=== PATIENT | female | born 1980 | race Caucasian/White ===

== ENCOUNTER 2017-01-30 15:02 | Emergency (ER) | payer MEDICARE, MEDICAID ==
[~2017-01-30] VITALS: Ht 157.5 cm; Wt 99.3 kg
[~2017-01-30 15:02] MED LIST: ALBU17AE3; ALBU8.5H2 IH; AMOX-355 PO; AMT25T; BSP10T PR; BUSP30TA2 PO; BUTA-234 PO; CLON1TAB PO; DESL1TBM PO; DOCU100T7 PO; DULO30CA; EST.625T PO; FEXO180T PO; FLUT1DIS26 IH; GBPN300C PO; HYDR-229 PO; HYDR-3816 PO; HYDR50CA3 PO; INVEGA; LMT25T; MNTL10T PO; MULT-608 PO; NAPR-243 PO; OMEP20CA12 PO; OXCA600T3 PO; PARO-49 PO; POTA99TA7 PO; PRD20T PO; PREG50C PO; PREMARIN; QTP100T; QTP100T PO; RANI-515 PO; SERT50TA PO; SOMA; TOPI200T25 PO; TRAZ150T42 PO; TRAZ150T72 PO; ZIPR60CA2 PO; ZLP10T PO
--- NOTE | 2017-01-30 15:08 | ED General ---
General Stated Complaint: LOW BACK PAIN/FEVER Source of Information: Patient Exam Limitations: No Limitations History of Present Illness Time Seen by Provider: 16:20 Initial Comments The patient is a 36-year-old white female who reports that she has been having urinary symptoms for several weeks. [facility] and was found to have hematuria. Her labs screening was otherwise negative. She has complains of urinary retention burning and low back pain. She also believes she has had a fever but this is not substantiated. She has also previously been seen by Dr. Gonzales. She states that she was scheduled for a CT scan next week. There is a sense of frustration expressed TAC ITLY. Allergies and Home Medications Allergies Coded Allergies: escitalopram oxalate (Verified Allergy, Mild, 07/13/12) latex (Unverified Allergy, Unknown, ITCHING, 08/30/15) sumatriptan (Verified Allergy, Unknown, 03/12/06) Uncoded Allergies: SURGICAL GLUE (Allergy, Unknown, DOESN'T ADHERE, 08/30/15) Home Medications Albuterol 8.5 Gm Hfa.aer.ad, 2 PUFF IH Q4H PRN, (Reported) Buspirone HCl 30 Mg Tablet, 30 MG PO BID, (Reported) Butalb/Acetaminophen/Caffeine 1 Each Tablet, 1 EACH PO Q4HR PRN, (Reported) Clonazepam 1 Mg Tablet, 1 MG PO TID PRN for ANXIETY, (Reported) Hydrocodone/Acetaminophen 1 Each Tablet, 1-2 TAB PO Q6H, #40 Ref 0 MAY TAKE ONE TABLET BY MOUTH EVERY 6 HRS NEEDED FOR PAIN. LAST DOSE GIVEN AT 1:49 PM ON 08/30/15. DO NOT EXCEED 4000 MG TYLENOL(ACETAMINOPHEN)IN A 24 HR PERIOD. Prescribed by: MILVIA AMARO on 08/30/15 1404 Montelukast Sodium 10 Mg Tablet, 10 MG PO DAILY, (Reported) Omeprazole 20 Mg Capsule.dr, 20 MG PO HS, (Reported) Oxcarbazepine 600 Mg Tablet, 600 MG PO BID, (Reported) Paroxetine HCl 20 Mg Tablet, 20 MG PO HS, (Reported) Ranitidine HCl 150 Mg Tablet, 150 MG PO DAILY PRN for HEARTBURN, (Reported) Topiramate 200 Mg Tablet, 200 MG PO BID, (Reported) Trazodone HCl 150 Mg Tablet, 150 MG PO HS, (Reported) Ziprasidone HCl 60 Mg Capsule, 60 MG PO BID, (Reported) Constitutional: see HPI EENTM: no symptoms reported Respiratory: no symptoms reported Cardiovascular: no symptoms reported Gastrointestinal: no symptoms reported Genitourinary: see HPI Musculoskeletal: no symptoms reported Skin: no symptoms reported Psychiatric/Neurological: Other (previous treatment multiple meds) Hematologic/Lymphatic: No Symptoms Reported Immunological/Allergic: no symptoms reported Physical Exam Vital Signs Vital Sign - Last 12Hours 01/30/17 16:02 Temp 98.5 Pulse 85 Resp 16 B/P (MAP) 145/89 Pulse Ox 98 O2 Delivery Room Air Capillary Refill : General Appearance: No Apparent Distress, WD/WN Eyes: Bilateral Eye Normal Inspection HEENT: Normal ENT Inspection Neck: Full Range of Motion, Normal Inspection, Non Tender, Supple Respiratory: Chest Non Tender, Lungs Clear, Normal Breath Sounds, No Accessory Muscle Use, No Respiratory Distress Cardiovascular: Regular Rate, Rhythm, No Edema, No Gallop, No JVD, No Murmur, Normal Peripheral Pulses Back: No CVA Tenderness Extremity: Normal Capillary Refill, Normal Inspection, Normal Range of Motion, Non Tender, No Calf Tenderness, No Pedal Edema Neurologic/Psychiatric: Alert, Oriented x3, No Motor/Sensory Deficits, Normal Mood/Affect Skin: Normal Color, Warm/Dry Lymphatic: No Adenopathy Progress/Results/Core Measures Results/Orders Lab Results Laboratory Tests Test 01/30/17 16:05 Range/Units Urine Color YELLOW Urine Clarity CLEAR Urine pH 6.5 5-9 Urine Specific [place] 1.015 L 1.016-1.022 Urine Protein 1+ H NEGATIVE Urine Glucose (UA) NEGATIVE NEGATIVE Urine Ketones NEGATIVE NEGATIVE Urine Nitrite NEGATIVE NEGATIVE Urine Bilirubin NEGATIVE NEGATIVE Urine Urobilinogen NORMAL NORMAL MG/DL Urine Leukocyte Esterase 1+ H NEGATIVE Urine RBC (Auto) 2+ H NEGATIVE Urine RBC 5-10 H /HPF Urine WBC 2-5 /HPF Urine Squamous Epithelial Cells 2-5 /HPF Urine Crystals NONE /LPF Urine Bacteria NONE /HPF Urine Casts NONE /LPF Urine Mucus NEGATIVE /LPF Urine Culture Indicated NO My Orders Orders - DAYANA COLEMAN MD Ua Culture If Indicated (01/30/17 16:02) Ct Abd/Pelvis Wo(Kidney Stone) (01/30/17 16:48) Fentanyl Injection (Sublimaze Injection (01/30/17 17:00) Medications Given in ED Current Medications Medications Dose Ordered Sig/Annette Route Start Time Stop Time Status Last Admin Dose Admin Fentanyl Citrate 50 mcg ONCE ONCE IM 01/30/17 17:00 01/30/17 17:01 DC 01/30/17 17:10 50 MCG Vital Signs/I&O Vital Sign - Last 12Hours 01/30/17 16:02 Temp 98.5 Pulse 85 Resp 16 B/P (MAP) 145/89 Pulse Ox 98 O2 Delivery Room Air Departure Impression Impression: Primary Impression: microscopic hematuria Disposition: HOME, SELF-CARE Condition: Stable/Unchanged Departure-Patient Inst. Decision time for Depature: 18:11 Add. Discharge Instructions: Take plenty of liquids Avoid NSAIDs such as ibuprofen Take tramadol as needed for back pain It would be useful to have a repeat consult with Dr. Gonzales Scripts Tramadol HCl (Tramadol HCl) 50 Mg Tablet 50 MG PO 3 times a day Y for pain, #20 TAB Prov: DAYANA COLEMAN MD 01/30/17 DAYANA COLEMAN MD Jan 30, 2017 15:08
[2017-01-30 16:15] LABS: BILIRUBIN,URINE NEGATIVE (NEGATIVE); KETONES,URINE NEGATIVE (NEGATIVE); LEUKOCYTE ESTERASE ,URINE 1+ (NEGATIVE); NITRITE,URINE NEGATIVE (NEGATIVE); PH,URINE 6.5 (5-9); PROTEIN,URINE 1+ (NEGATIVE); UROBILINOGEN,URINE NORMAL (NORMAL)
[2017-01-30] MEDS ORDERED: fentaNYL INJECTION 100 MCG/2 ML AMP IM ONE (17:00)
--- NOTE | 2017-01-30 17:52 | Diagnostic Imaging Report ---
PROCEDURE: CT urinary tract, rule out kidney stone. TECHNIQUE: Multiple contiguous axial images were obtained through the abdomen and pelvis without the use of intravenous contrast. INDICATION: Bilateral flank pain for one week. FINDINGS: Unenhanced images of the liver and spleen reveal no focal abnormality. There is distention of the gallbladder without evidence of wall thickening or inflammation. No pancreatic or adrenal gland abnormality is identified. There is punctate calcification of approximately 0.2 cm diameter in the upper pole of the left kidney. No other renal abnormality is seen. There is no evidence of hydronephrosis or hydroureter. There is mild aortoiliac atherosclerotic calcification. There is no free fluid in the abdomen or pelvis. No localized inflammation is seen. There is no evidence of pathologic adenopathy. IMPRESSION: Punctate nonobstructing calculus in the upper pole of the left kidney. Otherwise, there is no acute abnormality seen in the abdomen or pelvis. Dictated by: Dictated on workstation # [id number]
[2017-01-30] MEDS ORDERED: TRAM50TA2 PO (18:13)
[2017-01-30 18:20] VITALS: BP 145/89
== END 2017-01-30 18:20 | disposition home or self-care (01) ==
LOC: EDUNIT# 15:02 → ER 15:07
DX: R31.21 Asymptomatic microscopic hematuria (principal)
CPT/HCPCS: 74176; 81000; 99282

== ENCOUNTER 2017-06-06 17:12 | Emergency (ER) | payer MEDICARE, MEDICAID ==
[~2017-06-06] VITALS: Ht 157.5 cm; Wt 90.7 kg
[~2017-06-06 17:12] MED LIST changes: +TRAM50TA2 PO
--- NOTE | 2017-06-06 17:54 | ED Headache ---
General Chief Complaint: Head/Cervical Problems Stated Complaint: MIGRAINE Nursing Triage Note: PT REPORTS MIGRAINE SINCE YESTERDAY. SHE REPORTS TAKING FUROCET AT 1430 WITH NO RELIEF. Nursing Sepsis Screen: No Definite Risk Source: patient Exam Limitations: no limitations History of Present Illness Time seen by provider: 17:54 Initial Comments 36-year-old female patient presents to the emergency department with complaints of a migraine beginning yesterday. Reports she taken to Fioricet yesterday and 2 today without relief. Patient did use an Excedrin migraine headache yesterday with mild improvement. Denies taking any ibuprofen or Aleve as this "normally doesn't do much." Patient does complain of photophobia, phonophobia, and nausea. Denies vomiting. Reports similar to usual headaches. Patient reports frequent tension and migraine headache. Timing/Duration: other (today onset) Allergies and Home Medications Allergies Coded Allergies: escitalopram oxalate (Verified Allergy, Mild, 07/13/12) latex (Unverified Allergy, Unknown, ITCHING, 08/30/15) sumatriptan (Verified Allergy, Unknown, 03/12/06) Uncoded Allergies: SURGICAL GLUE (Allergy, Unknown, DOESN'T ADHERE, 08/30/15) Home Medications Albuterol 8.5 Gm Hfa.aer.ad, 2 PUFF IH Q4H PRN, (Reported) Buspirone HCl 30 Mg Tablet, 30 MG PO BID, (Reported) Butalb/Acetaminophen/Caffeine 1 Each Tablet, 1 EACH PO Q4HR PRN, (Reported) Clonazepam 1 Mg Tablet, 1 MG PO TID PRN for ANXIETY, (Reported) Hydrocodone/Acetaminophen 1 Each Tablet, 1-2 TAB PO Q6H, #40 Ref 0 MAY TAKE ONE TABLET BY MOUTH EVERY 6 HRS NEEDED FOR PAIN. LAST DOSE GIVEN AT 1:49 PM ON 08/30/15. DO NOT EXCEED 4000 MG TYLENOL(ACETAMINOPHEN)IN A 24 HR PERIOD. Prescribed by: MILVIA AMARO on 08/30/15 1404 Montelukast Sodium 10 Mg Tablet, 10 MG PO DAILY, (Reported) Omeprazole 20 Mg Capsule.dr, 20 MG PO HS, (Reported) Oxcarbazepine 600 Mg Tablet, 600 MG PO BID, (Reported) Paroxetine HCl 20 Mg Tablet, 20 MG PO HS, (Reported) Ranitidine HCl 150 Mg Tablet, 150 MG PO DAILY PRN for HEARTBURN, (Reported) Topiramate 200 Mg Tablet, 200 MG PO BID, (Reported) Tramadol HCl 50 Mg Tablet, 50 MG PO 3 times a day PRN for pain, #20 Prescribed by: DAYANA COLEMAN on 01/30/171812 Trazodone HCl 150 Mg Tablet, 150 MG PO HS, (Reported) Ziprasidone HCl 60 Mg Capsule, 60 MG PO BID, (Reported) Past Kctaupu-Nwxbtd-Ubhjly Hx Patient Social History Alcohol Use: Denies Use Recreational Drug Use: No Smoking Status: Current Everyday Smoker Type Used: Cigarettes 2nd Hand Smoke Exposure: No Recent Foreign Travel: No Contact w/Someone Who Travel: No Recent Infectious Disease Expo: No Recent Hopitalizations: No Physical Abuse: No Sexual Abuse: No Seasonal Allergies Seasonal Allergies: Yes Surgeries History of Surgeries: Yes (ESS, SEVERAL BREAST BX, R SHOULDER X4, DXLS X3, BILAT CTR, BILAT KNEE) Surgeries: Abdominal, Adenoidectomy, Appendectomy, Breast, Section, Hysterectomy, Orthopedic, Tonsillectomy Respiratory History of Respiratory Disorde: Yes Respiratory Disorders: Asthma Cardiovascular History of Cardiac Disorders: No Neurological History of Neurological Disord: Yes Neurological Disorders: Headaches /Migraines Reproductive System Hx Reproductive Disorders: No Sexually Transmitted Disease: No Female Reproductive Disorders: Endometriosis Gastrointestinal History of Gastrointestinal Di: Yes Gastrointestinal Disorders: Gastroesophageal Reflux, Chronic Constipation Musculoskeletal History of Musculoskeletal Dis: Yes Musculoskeletal Disorders: Arthritis Endocrine History of Endocrine Disorders: No Cancer History of Cancer: No Psychosocial History of Psychiatric Problem: Yes Behavioral Health Disorders: Anxiety, Bipolar, Schizophrenia, Depression Suicide Risk Score: 0 Integumentary History of Skin or Integumenta: No Blood Transfusions History of Blood Disorders: No Family Medical History Significant Family History: No Pertinent Family Hx Physical Exam Vital Signs Vital Sign - Last 12Hours 06/06/17 17:35 Temp 97.1 Pulse 92 Resp 16 B/P (MAP) 145/95 Pulse Ox 97 O2 Delivery Room Air Capillary Refill : Less Than 3 Seconds Progress/Results/Core Measures Results/Orders My Orders Orders - KIM PATTON Ketorolac Injection (Toradol Injection) (06/06/17 18:47) Orphenadrine Injection (Norflex Injectio (06/06/17 18:47) Promethazine Injection (Phenergan Injec (06/06/17 18:47) Diphenhydramine Tablet (Benadryl Tablet) (06/06/17 19:00) Medications Given in ED Current Medications Medications Dose Ordered Sig/Annette Route Start Time Stop Time Status Last Admin Dose Admin Diphenhydramine HCl 25 mg ONCE ONCE PO 06/06/17 19:00 06/06/17 19:01 DC 06/06/17 19:00 25 MG Vital Signs/I&O Vital Sign - Last 12Hours 06/06/17 17:35 Temp 97.1 Pulse 92 Resp 16 B/P (MAP) 145/95 Pulse Ox 97 O2 Delivery Room Air Blood Pressure Mean: 112 Departure Impression Impression: Primary Impression: Migraine Disposition: HOME, SELF-CARE Condition: Improved Departure-Patient Inst. Decision time for Depature: 19:32 Referrals: [facility] (PCP/Family) Primary Care Physician Patient Instructions: Tension Headache (DC), Migraine Headache (DC) Add. Discharge Instructions: All discharge instructions reviewed with patient and/or family. Voiced understanding. Continue usual home medications. Tylenol [id number] as directed for pain or headache. (do not exceed more than 3000 mg of tylenol in 24 hours. fioricet has 300 mg of tylenol per capsule.) Ibuprofen 800 mg by mouth every 8 hours as needed for pain or headache. Avoid bright lights, loud noises, tablets, computers, televisions, and Smart phones. Drink plenty of fluids. Cold compresses or heating pad as needed. Follow-up with your family practitioner for recheck and outpatient if needed. Return to the emergency department for worsened symptoms, changes in behavior, slurred speech, numbness, weakness, seizure, shortness of air, chest pain, or any other concerns. Work/School Note: Work Release Form Date Seen in the Emergency Department: Jun 06, 2017 Return to Work: Jun 06, 2017 Restrictions: No Restrictions KIM PATTON Jun 06, 2017 17:54
[2017-06-06] MEDS ORDERED: PROMETHAZINE INJ 25 MG/ML (PHENERGAN) AMP IM STA (18:47)
[2017-06-06] MEDS ORDERED: ORPHENADRINE 60 MG/2 ML (NORFLEX) AMP IM STA (18:47)
[2017-06-06] MEDS ORDERED: KETOROLAC 60 MG/2 ML VIAL IM STA (18:47)
[2017-06-06] MEDS ORDERED: diphenhydrAMINE 25 MG TAB (BENADRYL) PO ONE (19:00)
[2017-06-06 19:39] VITALS: BP 145/95
== END 2017-06-06 19:39 | disposition home or self-care (01) ==
LOC: EDUNIT# 17:12 → ER 17:13
DX: G43.909 Migraine, unspecified, not intractable, without status migrainosus (principal); K21.9 Gastro-esophageal reflux disease without esophagitis; J45.909 Unspecified asthma, uncomplicated; F41.9 Anxiety disorder, unspecified; F31.9 Bipolar disorder, unspecified; F20.9 Schizophrenia, unspecified; F17.210 Nicotine dependence, cigarettes, uncomplicated; Z90.49 Acquired absence of other specified parts of digestive tract; Z87.59 Personal history of other complications of pregnancy, childbirth and the puerperium; Z90.710 Acquired absence of both cervix and uterus; Z87.19 Personal history of other diseases of the digestive system
CPT/HCPCS: 96372; 99284

== ENCOUNTER 2018-04-30 15:08 | Outpatient (RCR) | payer MEDICARE, MEDICAID ==
[~2018-04-30 15:08] MED LIST changes: +HYDR-34 PO; -HYDR-3816 PO
== END 2018-05-21 | disposition home or self-care (01) ==
PROVIDERS: ATTEND Orthopaedic Surgery
DX: Z47.1 Aftercare following joint replacement surgery (principal); Z96.611 Presence of right artificial shoulder joint

== ENCOUNTER 2018-09-25 17:13 | Emergency (ER) | payer MEDICARE, MEDICAID ==
--- NOTE | 2018-09-25 17:46 | NUR ---
Called pt to triage; pt not in waiting room.
--- NOTE | 2018-09-25 18:06 | NUR ---
Called pt to triage; pt not in waiting room.
== END 2018-09-25 18:06 | disposition left against medical advice (07) ==
LOC: EDUNIT# 17:13 → ER 17:15
DX: R07.81 Pleurodynia (principal); W19.XXXA Unspecified fall, initial encounter

== ENCOUNTER → 2019-07-22 | Outpatient (CLI) | payer MEDICARE, MEDICAID ==
[2019-07-22 10:02] LABS: BASOPHILS % (AUTO) 0 % (0-10); EOSINOPHILS # (AUTO) 0.1 10^3/uL (0.0-0.3); EOSINOPHILS % (AUTO) 2 % (0-10); HEMATOCRIT 38 % (35-52); HEMOGLOBIN 13.4 G/DL (11.5-16.0); LYMPHOCYTES # (AUTO) 2.2 X 10^3 (1.0-4.0); LYMPHOCYTES % (AUTO) 36 % (12-44); MEAN CORPUSCULAR HEMOGLOBIN 32 PG (25-34); MEAN CORPUSCULAR HGB CONC 35 G/DL (32-36); MEAN CORPUSCULAR VOLUME 89 FL (80-99); MEAN PLATELET VOLUME 8.7 FL (7.4-10.4); MONOCYTES # (AUTO) 0.6 X 10^3 (0.0-1.0); MONOCYTES % (AUTO) 9 % (0-12); NEUTROPHILS # (AUTO) 3.2 X 10^3 (1.8-7.8); NEUTROPHILS % (AUTO) 53 % (42-75); PLATELET COUNT 321 10^3/uL (130-400); WHITE BLOOD COUNT 6.2 10^3/uL (4.3-11.0)
[2019-07-22 10:27] LABS: ALANINE AMINOTRANSFERASE 14 U/L (0-55); ALBUMIN 4.2 GM/DL (3.2-4.5); ALKALINE PHOSPHATASE 105 U/L (40-136); BILIRUBIN,TOTAL 0.3 MG/DL (0.1-1.0); BUN/CREATININE RATIO 8; CARBON DIOXIDE 19 MMOL/L (21-32); CHLORIDE 107 MMOL/L (98-107); CREATININE SERUM 0.88 MG/DL (0.60-1.30); GFR ESTIMATED > 60; GLUCOSE 97 MG/DL (70-105); POTASSIUM 3.7 MMOL/L (3.6-5.0); SODIUM 135 MMOL/L (135-145); TOTAL PROTEIN 6.5 GM/DL (6.4-8.2)
[2019-07-22 10:34] LABS: ERYTHROCYTE SEDIMENTATION RATE 9 MM/HR (0-20)
== END ==
LOC: LAB 09:46
PROVIDERS: ATTEND Psychiatry & Neurology Neurology
DX: F41.9 Anxiety disorder, unspecified (principal); G43.909 Migraine, unspecified, not intractable, without status migrainosus
CPT/HCPCS: 36415; 80053; 85025; 85652

== ENCOUNTER 2020-02-02 00:23 | Emergency (ER) | payer MEDICARE, MEDICAID ==
[~2020-02-02 00:23] MED LIST changes: -RANI-515 PO; +RANI-609 PO; -TRAM50TA2 PO; +TRM50T PO
[2020-02-02] MEDS ORDERED: LACTATED RINGERS 1,000 ML IV ONE (01:03)
[2020-02-02] MEDS ORDERED: GBPN600T (01:04)
[2020-02-02] MEDS ORDERED: TOPI200C6 (01:04)
[2020-02-02] MEDS ORDERED: PANT40TA3 (01:04)
[2020-02-02] MEDS ORDERED: MIRA50TA (01:04)
[2020-02-02] MEDS ORDERED: ZONI100C29 (01:04)
[2020-02-02] MEDS ORDERED: OXCA600T10 (01:04)
[2020-02-02] MEDS ORDERED: FAMO20TA5 (01:04)
[2020-02-02] MEDS ORDERED: ZOLM5SPR5 (01:04)
[2020-02-02] MEDS ORDERED: FLUT1DIS26 (01:04)
--- NOTE | 2020-02-02 01:12 | ED Abdominal Pain ---
General Chief Complaint: Abdominal/GI Problems Stated Complaint: CONSTIPATED,SEVERE ABD PAIN Source of Information: Patient Exam Limitations: No Limitations History of Present Illness Date Seen by Provider: Feb 02, 2020 Time Seen by Provider: 00:59 Initial Comments Here with report of severe abdominal pain and having problems with constipation. Apparently she's had difficulty with bowel movements over the last month. She is on stool softeners 3 times a day. That wasn't working so she was instructed by her doctor to drink a bottle of mag citrate. That did not produce significant results today and she called back and was instructed to drink another bottle of mag citrate. She did have one small bowel movement after the first bottle but had 11 after the second. She started having significant pain that causes her to double over, although is improved now. She was told that if she had pain that made her double over that she should seek further evaluation at the emergency department. Also complains of left-sided pain and is worried about obstruction or rupture. Denies blood in her stool. States that she has to push to go. Has long-standing constipation problems. Timing/Duration: Changing Over Time, Getting Worse, Other Severity/Quality: Moderate, Severe, Aching, Cramping Location: Generalized Abdomen Radiation: No Radiation Activities at Onset: Other (laxatives) Modifying Factors: Improves With Defecating Associated Symptoms: No Back Pain, No Chest Pain, No Fever/Chills, No Nausea/Vomiting, No Shortness of Air, No Swelling/Mass in Abdomen, No Weakness Allergies and Home Medications Allergies Coded Allergies: escitalopram oxalate (Verified Allergy, Mild, 07/13/12) latex (Unverified Allergy, Unknown, ITCHING, 08/30/15) sumatriptan (Verified Allergy, Unknown, 03/12/06) Uncoded Allergies: SURGICAL GLUE (Allergy, Unknown, DOESN'T ADHERE, 08/30/15) Home Medications Albuterol 8.5 Gm Hfa.aer.ad, 2 PUFF IH Q4H PRN, (Reported) Buspirone HCl 30 Mg Tablet, 30 MG PO BID, (Reported) Butalb/Acetaminophen/Caffeine 1 Each Tablet, 1 EACH PO Q4HR PRN, (Reported) Clonazepam 1 Mg Tablet, 1 MG PO TID PRN for ANXIETY, (Reported) Montelukast Sodium 10 Mg Tablet, 10 MG PO DAILY, (Reported) Oxcarbazepine 600 Mg Tablet, 600 MG PO BID, (Reported) Paroxetine HCl 20 Mg Tablet, 20 MG PO HS, (Reported) Ranitidine HCl 150 Mg Tablet, 150 MG PO DAILY PRN for HEARTBURN, (Reported) Trazodone HCl 150 Mg Tablet, 150 MG PO HS, (Reported) Ziprasidone HCl 60 Mg Capsule, 60 MG PO BID, (Reported) Patient Home Medication List Home Medication List Reviewed: Yes Review of Systems Review of Systems Constitutional: see HPI; No chills, No fever EENTM: No Nose Congestion Respiratory: Denies Cough, Denies Shortness of Air Cardiovascular: No Symptoms Reported Gastrointestinal: Abdominal Pain, Constipated; Denies Nausea, Denies Vomiting Genitourinary: No Symptoms Reported Musculoskeletal: no symptoms reported Skin: no symptoms reported Psychiatric/Neurological: No Symptoms Reported All Other Systems Reviewed Negative Unless Noted: Yes Past Xacmyvy-Ixhaqk-Ztalkq Hx Past Med/Social Hx: Reviewed Nursing Past Med/Soc Hx Patient Social History Alcohol Use: Denies Use Smoking Status: Current Everyday Smoker Type Used: Cigarettes 2nd Hand Smoke Exposure: No Recent Foreign Travel: No Contact w/Someone Who Travel: No Recent Hopitalizations: No Seasonal Allergies Seasonal Allergies: Yes Past Medical History Surgeries: Yes (ESS, SEVERAL BREAST BX, R SHOULDER X4, DXLS X3, BILAT CTR, BILAT KNEE) Abdominal, Adenoidectomy, Appendectomy, Breast, Section, Hysterectomy, Orthopedic, Tonsillectomy Respiratory: Yes Asthma Cardiac: No Neurological: Yes Headaches /Migraines Reproductive Disorders: No Female Reproductive Disorders: Endometriosis Sexually Transmitted Disease: No Gastrointestinal: Yes Gastroesophageal Reflux, Chronic Constipation Musculoskeletal: Yes Arthritis Endocrine: No Cancer: No Psychosocial: Yes Anxiety, Bipolar, Schizophrenia, Depression Integumentary: No Blood Disorders: No Family Medical History Reviewed Nursing Family Hx No Pertinent Family Hx Physical Exam Vital Signs Vital Signs - First Documented 02/02/20 00:45 Temp 36.6 Pulse 94 Resp 16 B/P (MAP) 126/83 (97) O2 Delivery Room Air Capillary Refill : Height/Weight/BMI Height: 5'2.00" Weight: 200lbs. 0oz. 90.112298kd; 0.00 BMI Method:Stated General Appearance: WD/WN, no apparent distress HEENT: PERRL/EOMI, pharynx normal Neck: full range of motion, supple Respiratory: lungs clear, normal breath sounds Cardiovascular: regular rate, rhythm, no murmur Gastrointestinal: normal bowel sounds, soft; No guarding, No rebound; tenderness (diffuse) Extremities: non-tender, normal inspection Back: normal inspection, no CVA tenderness, no vertebral tenderness Neurologic/Psychiatric: alert, oriented x 3 Skin: normal color, warm/dry Progress/Results/Core Measures Results/Orders Lab Results Laboratory Tests Test 02/02/20 00:48 02/02/20 01:10 Range/Units Urine Color YELLOW Urine Clarity CLEAR Urine pH 8.0 5-9 Urine Specific [place] 1.010 L 1.016-1.022 Urine Protein NEGATIVE NEGATIVE Urine Glucose (UA) NEGATIVE NEGATIVE Urine Ketones NEGATIVE NEGATIVE Urine Nitrite NEGATIVE NEGATIVE Urine Bilirubin NEGATIVE NEGATIVE Urine Urobilinogen 0.2 < = 1.0 MG/DL Urine Leukocyte Esterase NEGATIVE NEGATIVE Urine RBC (Auto) TRACE-I NEGATIVE Urine RBC RARE /HPF Urine WBC NONE /HPF Urine Squamous Epithelial Cells 0-2 /HPF Urine Crystals NONE /LPF Urine Bacteria NEGATIVE /HPF Urine Casts NONE /LPF Urine Mucus NEGATIVE /LPF Urine Culture Indicated NO White Blood Count 7.3 4.3-11.0 10^3/uL Red Blood Count 4.17 L 4.35-5.85 10^6/uL Hemoglobin 13.4 11.5-16.0 G/DL Hematocrit 36 35-52 % Mean Corpuscular Volume 87 80-99 FL Mean Corpuscular Hemoglobin 32 25-34 PG Mean Corpuscular Hemoglobin Concent 37 H 32-36 G/DL Red Cell Distribution Width 12.6 10.0-14.5 % Platelet Count 274 130-400 10^3/uL Mean Platelet Volume 9.1 7.4-10.4 FL Neutrophils (%) (Auto) 54 42-75 % Lymphocytes (%) (Auto) 34 12-44 % Monocytes (%) (Auto) 11 0-12 % Eosinophils (%) (Auto) 2 0-10 % Basophils (%) (Auto) 0 0-10 % Neutrophils # (Auto) 3.9 1.8-7.8 X 10^3 Lymphocytes # (Auto) 2.5 1.0-4.0 X 10^3 Monocytes # (Auto) 0.8 0.0-1.0 X 10^3 Eosinophils # (Auto) 0.1 0.0-0.3 10^3/uL Basophils # (Auto) 0.0 0.0-0.1 10^3/uL Sodium Level 129 L 135-145 MMOL/L Potassium Level 3.1 L 3.6-5.0 MMOL/L Chloride Level 101 98-107 MMOL/L Carbon Dioxide Level 18 L 21-32 MMOL/L Anion Gap 10 5-14 MMOL/L Blood Urea Nitrogen 5 L 7-18 MG/DL Creatinine 0.76 0.60-1.30 MG/DL Estimat Glomerular Filtration Rate > 60 BUN/Creatinine Ratio 7 Glucose Level 124 H 70-105 MG/DL Calcium Level 8.8 8.5-10.1 MG/DL Corrected Calcium 8.6 8.5-10.1 MG/DL Total Bilirubin 0.2 0.1-1.0 MG/DL Aspartate Amino Transf (AST/SGOT) 18 5-34 U/L Alanine Aminotransferase (ALT/SGPT) 20 0-55 U/L Alkaline Phosphatase 91 40-136 U/L C-Reactive Protein High Sensitivity 0.49 0.00-0.50 MG/DL Total Protein 6.8 6.4-8.2 GM/DL Albumin 4.3 3.2-4.5 GM/DL My Orders Orders - JANET PRATT MD Cbc With Automated Diff (02/02/20 01:03) Comprehensive Metabolic Panel (02/02/20 01:03) Hs C Reactive Protein (02/02/20 01:03) Ua Culture If Indicated (02/02/20 01:03) Ct Abdomen/Pelvis W (02/02/20 01:03) Ed Iv/Invasive Line Start (02/02/20 01:03) Lactated Ringers (Lr 1000 Ml Iv Solution (02/02/20 01:03) Ns (Ivpb) (Sodium Chloride 0.9% Ivpb Bag (02/02/20 01:45) Iohexol Injection (Omnipaque 350 Mg/Ml 1 (02/02/20 01:45) Medications Given in ED Current Medications Medications Dose Ordered Sig/Annette Route Start Time Stop Time Status Last Admin Dose Admin Iohexol 100 ml ONCE ONCE IV 02/02/20 01:45 02/02/20 01:46 UNV 02/02/20 01:48 100 ML Lactated Ringer's 1,000 ml @ 0 mls/hr Q0M ONCE IV 02/02/20 01:03 02/02/20 01:04 DC 02/02/20 01:17 999 MLS/HR Sodium Chloride 80 ml ONCE ONCE IV 02/02/20 01:45 02/02/20 01:46 UNV 02/02/20 01:48 80 ML Vital Signs/I&O 02/02/20 00:45 Temp 36.6 Pulse 94 Resp 16 B/P (MAP) 126/83 (97) O2 Delivery Room Air Progress Progress Note : Progress Note Seen and evaluated. Due to severity of symptoms, IV, labs, UA and CT abdomen pelvis ordered. LR 1 L bolus. Monitor patient. 0248: CT results reviewed. I did discuss the case with Dr. De La Torre, on-call surgeon. He would like to see the patient in office today for likely colonoscopy on Friday. This was discussed with the patient and she agrees. She will remain on a liquid diet and further instructions per Dr. De La Torre. Overall doing better. Discharged home with return precautions. Patient verbalize understanding instructions and agreement with plan. Diagnostic Imaging Diagonstic Imaging: CT Plain Films/CT/US/NM/MRI: abdomen, pelvis Comments Liquid stool throughout the colon consistent with a nonspecific diarrheal illness. No mucosal inflammatory changes. Short segment stenosis within the sigmoid colon measuring 3 cm which could potentially represent malignancy. No extreme obstruction. Consider colonoscopy. Hepatic steatosis. Departure Impression Primary Impression: Abdominal pain Qualified Codes: R10.30 - Lower abdominal pain, unspecified Additional Impression: Abnormal finding on CT scan Disposition: HOME, SELF-CARE Condition: Stable Departure-Patient Inst. Decision time for Depature: 02:51 Referrals: REBECCA DE LA TORRE HOLLY R MD (PCP/Family) Primary Care Physician Patient Instructions: Acute Abdomen (Belly Pain), Adult (DC) Add. Discharge Instructions: All discharge instructions reviewed with patient and/or family. Voiced understanding. You need to follow-up with Dr. De La Torre today. Call his office this morning for appointment this afternoon. Let them know that you were seen in the emergency department and he wants to see you today. Continue with clear liquid diet and then follow instructions from Dr. De La Torre. Return for worse pain, swelling, weakness, breathing problems or other concerns as needed. Copy Copies To 1: REBECCA DE LA TORRE DO Copies To 2: DAMIAN GUTIERREZ MD, TIMOTHY D MD Feb 02, 2020 01:12
[2020-02-02 01:14] LABS: BILIRUBIN,URINE NEGATIVE (NEGATIVE); CLARITY,URINE CLEAR; COLOR,URINE YELLOW; GLUCOSE, URINE (UA) NEGATIVE (NEGATIVE); KETONES,URINE NEGATIVE (NEGATIVE); LEUKOCYTE ESTERASE ,URINE NEGATIVE (NEGATIVE); NITRITE,URINE NEGATIVE (NEGATIVE); PROTEIN,URINE NEGATIVE (NEGATIVE)
[2020-02-02 01:17] LABS: BASOPHILS % (AUTO) 0 % (0-10); EOSINOPHILS # (AUTO) 0.1 10^3/uL (0.0-0.3); EOSINOPHILS % (AUTO) 2 % (0-10); HEMATOCRIT 36 % (35-52); HEMOGLOBIN 13.4 G/DL (11.5-16.0); LYMPHOCYTES # (AUTO) 2.5 X 10^3 (1.0-4.0); LYMPHOCYTES % (AUTO) 34 % (12-44); MEAN CORPUSCULAR HEMOGLOBIN 32 PG (25-34); MEAN CORPUSCULAR HGB CONC 37 G/DL (32-36); MEAN CORPUSCULAR VOLUME 87 FL (80-99); MEAN PLATELET VOLUME 9.1 FL (7.4-10.4); MONOCYTES # (AUTO) 0.8 X 10^3 (0.0-1.0); MONOCYTES % (AUTO) 11 % (0-12); NEUTROPHILS # (AUTO) 3.9 X 10^3 (1.8-7.8); NEUTROPHILS % (AUTO) 54 % (42-75); PLATELET COUNT 274 10^3/uL (130-400); RED CELL DISTRIBUTION WIDTH 12.6 % (10.0-14.5); WHITE BLOOD COUNT 7.3 10^3/uL (4.3-11.0)
[2020-02-02 01:22] LABS: BACTERIA,URINE NEGATIVE /HPF; RBC,URINE RARE /HPF; SQUAMOUS EPITHELIAL CELL,UR 0-2 /HPF
[2020-02-02 01:26] LABS: ALBUMIN 4.3 GM/DL (3.2-4.5); CHLORIDE 101 MMOL/L (98-107); POTASSIUM 3.1 MMOL/L (3.6-5.0); SODIUM 129 MMOL/L (135-145)
[2020-02-02 01:27] LABS: CALCIUM 8.8 MG/DL (8.5-10.1)
[2020-02-02 01:28] LABS: GLUCOSE 124 MG/DL (70-105); TOTAL PROTEIN 6.8 GM/DL (6.4-8.2)
[2020-02-02 01:29] LABS: CARBON DIOXIDE 18 MMOL/L (21-32)
[2020-02-02 01:30] LABS: BILIRUBIN,TOTAL 0.2 MG/DL (0.1-1.0)
[2020-02-02 01:32] LABS: ALKALINE PHOSPHATASE 91 U/L (40-136); CREATININE SERUM 0.76 MG/DL (0.60-1.30); GFR ESTIMATED > 60
[2020-02-02 01:33] LABS: BUN/CREATININE RATIO 7
[2020-02-02 01:35] LABS: ALANINE AMINOTRANSFERASE 20 U/L (0-55)
[2020-02-02] MEDS ORDERED: IOHEXOL 350 MG/ML 100 ML (OMNIPAQUE 350) VIAL IV ONE (01:45)
[2020-02-02] MEDS ORDERED: NS 100 ML (IVPB) BAG IV ONE (01:45)
--- NOTE | 2020-02-02 02:47 | NUR ---
COVID-19 SWAB COLLECTED AND SENT TO LAB WITH [facility] PAPERWORK. DANIELA, SUPERVISOR [employer] NOTIFIED.
[2020-02-02 03:11] VITALS: BP 125/80
--- NOTE | 2020-02-02 06:57 | Diagnostic Imaging Report ---
PROCEDURE: CT abdomen and pelvis with contrast. TECHNIQUE: Multiple contiguous axial images were obtained through the abdomen and pelvis after administration of intravenous contrast. Auto Exposure Controls were utilized during the CT exam to meet ALARA standards for radiation dose reduction. INDICATION: Abdominal pain. COMPARISON: CT abdomen and pelvis without contrast 01/30/2017. FINDINGS: The lung bases are clear. The liver, gallbladder, pancreas, spleen, adrenals, kidneys, collecting systems and partially opacified bladder are negative. Hysterectomy. No free intraperitoneal air or fluid. Appendectomy. No lymphadenopathy. There is fluid throughout the colon which is normal in caliber. Short segment underdistention in the sigmoid colon is nonspecific. No acute osseous findings. IMPRESSION: 1. Fluid throughout much of the colon suggesting a diarrheal state. 2. Short segment of underdistention in the sigmoid colon is entirely nonspecific. If there is concern for colonic mass or stricture, recommend colonoscopy. Dictated by: Dictated on workstation # [id number]
== END 2020-02-02 03:12 | disposition home or self-care (01) ==
LOC: EDUNIT# 00:23 → ER 00:26
DX: R10.84 Generalized abdominal pain (principal); R93.3 Abnormal findings on diagnostic imaging of other parts of digestive tract; J45.909 Unspecified asthma, uncomplicated; K21.9 Gastro-esophageal reflux disease without esophagitis; F41.9 Anxiety disorder, unspecified; F31.9 Bipolar disorder, unspecified; F20.9 Schizophrenia, unspecified; G43.909 Migraine, unspecified, not intractable, without status migrainosus; F17.210 Nicotine dependence, cigarettes, uncomplicated; Z91.040 Latex allergy status; Z88.8 Allergy status to other drugs, medicaments and biological substances
CPT/HCPCS: 74177; 80053; 81000; 84703; 85025; 86141; 99284; U0002; 36415; 87635

== ENCOUNTER → 2020-03-10 | Outpatient (CLI) | payer MEDICARE, MEDICAID ==
[~2020-03-10] MED LIST changes: +FAMO20TA5; +FLUT1DIS26; +GBPN600T; +MIRA50TA; +OXCA600T10; +PANT40TA3; +TOPI200C6; +ZOLM5SPR5; +ZONI100C29
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
== END ==
LOC: RAD 12:32
PROVIDERS: ATTEND Nurse Practitioner Family
DX: S06.0X0A Concussion without loss of consciousness, initial encounter (principal); W22.8XXA Striking against or struck by other objects, initial encounter
CPT/HCPCS: 70450

== ENCOUNTER 2020-05-15 11:39 | Emergency (ER) | payer MEDICARE, MEDICAID ==
[~2020-05-15] VITALS: Ht 160 cm; Wt 79.0 kg
[~2020-05-15 11:39] MED LIST changes: -PANT40TA3; +PANT40TA52
--- NOTE | 2020-05-15 12:19 | ED Respiratory ---
General Chief Complaint: Respiratory Problems Stated Complaint: LOW OXYGEN;COVID SYMPTOMS Source: patient Exam Limitations: no limitations History of Present Illness Date Seen by Provider: May 15, 2020 Time Seen by Provider: 12:18 Initial Comments To ER from [facility] with reports of oxygen saturation of 90% on room air. Upon arrival to ER here she is 92-94% on room air. She has a history of asthma, she is a smoker. She is unable to tell when her symptoms started because she has asthma and a chronic cough. She said had no fevers. She does have a headache. Her cough is productive of mucus. Timing/Duration: constant Severity: moderate Associated Symptoms: cough Allergies and Home Medications Allergies Coded Allergies: escitalopram oxalate (Verified Allergy, Mild, 07/13/12) latex (Unverified Allergy, Unknown, ITCHING, 08/30/15) sumatriptan (Verified Allergy, Unknown, 03/12/06) Uncoded Allergies: SURGICAL GLUE (Allergy, Unknown, DOESN'T ADHERE, 08/30/15) Home Medications Albuterol 8.5 Gm Hfa.aer.ad, 2 PUFF IH Q4H PRN, (Reported) Albuterol Sulfate 1 Puff Puff, 2 PUFF IH Q4H PRN for WHEEZING 1 PUFF = 90 MCG Prescribed by: JAMAAL BROWN on 05/15/20 1309 Buspirone HCl 30 Mg Tablet, 30 MG PO BID, (Reported) Butalb/Acetaminophen/Caffeine 1 Each Tablet, 1 EACH PO Q4HR PRN, (Reported) Cefuroxime Axetil 250 Mg Tablet, 250 MG PO BID Prescribed by: JAMAAL BROWN on 05/15/20 1309 Clonazepam 1 Mg Tablet, 1 MG PO TID PRN for ANXIETY, (Reported) Montelukast Sodium 10 Mg Tablet, 10 MG PO DAILY, (Reported) Oxcarbazepine 600 Mg Tablet, 600 MG PO BID, (Reported) Paroxetine HCl 20 Mg Tablet, 20 MG PO HS, (Reported) Prednisone 20 Mg Tab, 40 MG PO DAILY Prescribed by: JAMAAL BROWN on 05/15/20 1309 Ranitidine HCl 150 Mg Tablet, 150 MG PO DAILY PRN for HEARTBURN, (Reported) Trazodone HCl 150 Mg Tablet, 150 MG PO HS, (Reported) Ziprasidone HCl 60 Mg Capsule, 60 MG PO BID, (Reported) Patient Home Medication List Home Medication List Reviewed: Yes Review of Systems Review of Systems Constitutional: see HPI EENTM: see HPI Respiratory: see HPI, cough Cardiovascular: no symptoms reported Genitourinary: no symptoms reported Musculoskeletal: no symptoms reported Skin: no symptoms reported Hematologic/Lymphatic: No Symptoms Reported Past Jesdild-Knqgrv-Bkofec Hx Patient Social History Type Used: Cigarettes 2nd Hand Smoke Exposure: No Recent Hopitalizations: No Seasonal Allergies Seasonal Allergies: Yes Past Medical History Surgeries: Yes (ESS, SEVERAL BREAST BX, R SHOULDER X4, DXLS X3, BILAT CTR, BILAT KNEE) Abdominal, Adenoidectomy, Appendectomy, Breast, Section, Hysterectomy, Orthopedic, Tonsillectomy Respiratory: Yes Asthma Cardiac: No Neurological: Yes Headaches /Migraines Reproductive Disorders: No Female Reproductive Disorders: Endometriosis Sexually Transmitted Disease: No Gastrointestinal: Yes Gastroesophageal Reflux, Chronic Constipation Musculoskeletal: Yes Arthritis Endocrine: No Cancer: No Psychosocial: Yes Anxiety, Bipolar, Schizophrenia, Depression Integumentary: No Blood Disorders: No Family Medical History No Pertinent Family Hx Physical Exam Vital Signs - First Documented 05/15/20 12:02 Temp 36.4 Pulse 65 Resp 20 B/P (MAP) 128/78 (95) Pulse Ox 93 O2 Delivery Room Air Capillary Refill : Height: 5'2.00" Weight: 200lbs. 0oz. 90.494854rt; 0.00 BMI Method:Stated General Appearance: WD/WN, no apparent distress, other (no distress no tachypnea, she is not tachycardic. Oxygen saturation 90-93% on room air. Heart rate 70.) Eyes: Bilateral Eye Normal Inspection, Bilateral Eye PERRL, Bilateral Eye EOMI HEENT: PERRL/EOMI, normal ENT inspection Respiratory: no respiratory distress, no accessory muscle use Cardiovascular: regular rate, rhythm, no murmur Gastrointestinal: normal bowel sounds, non tender Neurologic/Psychiatric: alert, normal mood/affect, oriented x 3 Skin: normal color, warm/dry Progress/Results/Core Measures Suspected Sepsis SIRS Temperature: Pulse: Respiratory Rate: Laboratory Tests 05/15/20 12:15: White Blood Count 9.3 Blood Pressure / Mean: Laboratory Tests 05/15/20 12:15: Creatinine 0.79, Platelet Count 357, Total Bilirubin 0.3 Results/Orders Lab Results Laboratory Tests Test 05/15/20 12:00 05/15/20 12:15 05/15/20 12:25 Range/Units Urine Color YELLOW Urine Clarity CLEAR Urine pH 7.0 5-9 Urine Specific [place] 1.010 L 1.016-1.022 Urine Protein NEGATIVE NEGATIVE Urine Glucose (UA) NEGATIVE NEGATIVE Urine Ketones NEGATIVE NEGATIVE Urine Nitrite NEGATIVE NEGATIVE Urine Bilirubin NEGATIVE NEGATIVE Urine Urobilinogen 0.2 < = 1.0 MG/DL Urine Leukocyte Esterase NEGATIVE NEGATIVE Urine RBC (Auto) NEGATIVE NEGATIVE Urine RBC RARE /HPF Urine WBC RARE /HPF Urine Squamous Epithelial Cells RARE /HPF Urine Crystals NONE /LPF Urine Bacteria NEGATIVE /HPF Urine Casts NONE /LPF Urine Mucus NEGATIVE /LPF Urine Culture Indicated NO White Blood Count 9.3 4.3-11.0 10^3/uL Red Blood Count 3.49 L 3.80-5.11 10^6/uL Hemoglobin 11.2 L 11.5-16.0 g/dL Hematocrit 32 L 35-52 % Mean Corpuscular Volume 91 80-99 fL Mean Corpuscular Hemoglobin 32 25-34 pg Mean Corpuscular Hemoglobin Concent 35 32-36 g/dL Red Cell Distribution Width 13.2 10.0-14.5 % Platelet Count 357 130-400 10^3/uL Mean Platelet Volume 8.4 L 9.0-12.2 fL Immature Granulocyte % (Auto) 0 % Neutrophils (%) (Auto) 73 42-75 % Lymphocytes (%) (Auto) 19 12-44 % Monocytes (%) (Auto) 6 0-12 % Eosinophils (%) (Auto) 1 0-10 % Basophils (%) (Auto) 0 0-10 % Neutrophils # (Auto) 6.8 1.8-7.8 10^3/uL Lymphocytes # (Auto) 1.8 1.0-4.0 10^3/uL Monocytes # (Auto) 0.6 0.0-1.0 10^3/uL Eosinophils # (Auto) 0.1 0.0-0.3 10^3/uL Basophils # (Auto) 0.0 0.0-0.1 10^3/uL Immature Granulocyte # (Auto) 0.0 0.0-0.1 10^3/uL D-Dimer 0.57 H 0.00-0.49 UG/ML Sodium Level 126 L 135-145 MMOL/L Potassium Level 3.3 L 3.6-5.0 MMOL/L Chloride Level 96 L 98-107 MMOL/L Carbon Dioxide Level 19 L 21-32 MMOL/L Anion Gap 11 5-14 MMOL/L Blood Urea Nitrogen 7 7-18 MG/DL Creatinine 0.79 0.60-1.30 MG/DL Estimat Glomerular Filtration Rate > 60 BUN/Creatinine Ratio 9 Glucose Level 112 H 70-105 MG/DL Calcium Level 9.0 8.5-10.1 MG/DL Corrected Calcium 8.9 8.5-10.1 MG/DL Total Bilirubin 0.3 0.1-1.0 MG/DL Aspartate Amino Transf (AST/SGOT) 23 5-34 U/L Alanine Aminotransferase (ALT/SGPT) 32 0-55 U/L Alkaline Phosphatase 84 40-136 U/L C-Reactive Protein High Sensitivity 2.08 H 0.00-0.50 MG/DL Total Protein 6.6 6.4-8.2 GM/DL Albumin 4.1 3.2-4.5 GM/DL Serum Test, Qualitative NEGATIVE NEGATIVE Coronavirus 2018 ([facility]) Negative Negative My Orders Orders - JAMAAL BROWN APRN Cbc With Automated Diff (05/15/20 12:00) Fibrin Degradation Products (05/15/20 12:00) Hs C Reactive Protein (05/15/20 12:00) Hcg,Qualitative Serum (05/15/20 12:00) Comprehensive Metabolic Panel (05/15/20 12:00) Ed Iv/Invasive Line Start (05/15/20 12:00) Chest 1 View, Ap/Pa Only (05/15/20 12:00) Covid 19 Inhouse Test (05/15/20 12:00) Coronavirus Sars-Cov-2 So 2018 (05/15/20 12:00) Ua Culture If Indicated (05/15/20 12:41) Ns Iv 1000 Ml (Sodium Chloride 0.9%) (05/15/20 12:45) Vital Signs/I&O 05/15/20 05/15/20 12:02 13:30 Temp 36.4 36.4 Pulse 65 70 Resp 20 20 B/P (MAP) 128/78 (95) 113/78 (95) Pulse Ox 93 93 O2 Delivery Room Air Room Air Capillary Refill : Departure Communication (Admissions) 1304-discussed with her the elevated risk of DVT/PE and recommendation for CT pulmonary angiogram. She declines, she states she just wants to go home. She'll sign a refusal of services form. I'll treat for COPD/asthma exacerbation with inhaler steroids and antibiotic.sats [id number]% room air Impression Primary Impression: Bronchitis Disposition: HOME, SELF-CARE Condition: Stable Departure-Patient Inst. Decision time for Depature: 13:06 Referrals: DAMIAN GUTIERREZ MD (PCP/Family) Primary Care Physician Patient Instructions: Acute Bronchitis Add. Discharge Instructions: 1. Return to ER for any concerns or worsening. Stay home and quarantined until your second coated swab comes back negative which should be tomorrow. Take the antibiotics steroids and inhaler as directed. All discharge instructions reviewed with patient and/or family. Voiced understanding. Scripts Albuterol Sulfate (PROAIR HFA) 1 Puff Puff 2 PUFF IH Q4H PRN for WHEEZING, #1 PUFF 1 PUFF = 90 MCG Prov: JAMAAL BROWN APRN 05/15/20 Prednisone (Prednisone) 20 Mg Tab 40 MG PO DAILY, #8 TAB 0 Refills Prov: JAMAAL BROWN APRN 05/15/20 Cefuroxime Axetil (Cefuroxime) 250 Mg Tablet 250 MG PO BID, #10 TAB Prov: JAMAAL BROWN APRN 05/15/20 Work/School Note: Work Release Form Date Seen in the Emergency Department: May 15, 2020 Return to Work: May 17, 2020 JAMAAL BROWN APRN May 15, 2020 12:19
[2020-05-15 12:26] LABS: BASOPHILS % (AUTO) 0 % (0-10); EOSINOPHILS # (AUTO) 0.1 10^3/uL (0.0-0.3); EOSINOPHILS % (AUTO) 1 % (0-10); HEMATOCRIT 32 % (35-52); HEMOGLOBIN 11.2 g/dL (11.5-16.0); LYMPHOCYTES # (AUTO) 1.8 10^3/uL (1.0-4.0); LYMPHOCYTES % (AUTO) 19 % (12-44); MEAN CORPUSCULAR HEMOGLOBIN 32 pg (25-34); MEAN CORPUSCULAR HGB CONC 35 g/dL (32-36); MEAN CORPUSCULAR VOLUME 91 fL (80-99); MEAN PLATELET VOLUME 8.4 fL (9.0-12.2); MONOCYTES # (AUTO) 0.6 10^3/uL (0.0-1.0); MONOCYTES % (AUTO) 6 % (0-12); NEUTROPHILS # (AUTO) 6.8 10^3/uL (1.8-7.8); NEUTROPHILS % (AUTO) 73 % (42-75); PLATELET COUNT 357 10^3/uL (130-400); WHITE BLOOD COUNT 9.3 10^3/uL (4.3-11.0)
--- NOTE | 2020-05-15 12:31 | Diagnostic Imaging Report ---
Indication: Shortness of breath Portable chest 12:19 PM Heart size and pulmonary vascularity are normal. Lungs are clear. There are no effusions or pneumothoraces. IMPRESSION: Negative chest Dictated by: Dictated on workstation # [id number]
[2020-05-15 12:39] LABS: ALBUMIN 4.1 GM/DL (3.2-4.5); CHLORIDE 96 MMOL/L (98-107); POTASSIUM 3.3 MMOL/L (3.6-5.0); SODIUM 126 MMOL/L (135-145)
[2020-05-15 12:41] LABS: GLUCOSE 112 MG/DL (70-105); TOTAL PROTEIN 6.6 GM/DL (6.4-8.2)
[2020-05-15 12:43] LABS: BILIRUBIN,TOTAL 0.3 MG/DL (0.1-1.0); CARBON DIOXIDE 19 MMOL/L (21-32)
[2020-05-15 12:45] LABS: ALKALINE PHOSPHATASE 84 U/L (40-136); CREATININE SERUM 0.79 MG/DL (0.60-1.30); GFR ESTIMATED > 60
[2020-05-15] MEDS ORDERED: NS IV 1000 ML 1,000 ML IV SCH (12:45)
[2020-05-15 12:46] LABS: BUN/CREATININE RATIO 9
[2020-05-15 12:48] LABS: ALANINE AMINOTRANSFERASE 32 U/L (0-55)
[2020-05-15] MEDS ORDERED: HOLD METFORMIN - RECEIVED CONTRAST 20 ML VIAL IV SCH (13:00)
[2020-05-15] MEDS ORDERED: NS 100 ML (IVPB) BAG IV ONE (13:00)
[2020-05-15] MEDS ORDERED: IOHEXOL 350 MG/ML 100 ML (OMNIPAQUE 350) VIAL IV ONE (13:00)
[2020-05-15] MEDS ORDERED: PRD20T PO (13:09)
[2020-05-15] MEDS ORDERED: RT-ALBUINH IH (13:09)
[2020-05-15] MEDS ORDERED: CEFU250T80 PO (13:09)
[2020-05-15 13:12] LABS: BILIRUBIN,URINE NEGATIVE (NEGATIVE); CLARITY,URINE CLEAR; COLOR,URINE YELLOW; GLUCOSE, URINE (UA) NEGATIVE (NEGATIVE); KETONES,URINE NEGATIVE (NEGATIVE); LEUKOCYTE ESTERASE ,URINE NEGATIVE (NEGATIVE); NITRITE,URINE NEGATIVE (NEGATIVE); PROTEIN,URINE NEGATIVE (NEGATIVE)
[2020-05-15 13:20] LABS: BACTERIA,URINE NEGATIVE /HPF; RBC,URINE RARE /HPF; SQUAMOUS EPITHELIAL CELL,UR RARE /HPF; WBC,URINE RARE /HPF
[2020-05-15 13:30] VITALS: BP 113/78
--- NOTE | 2020-05-16 18:21 | NUR ---
Pt contacted this RN requesting Covid-19 test results.
== END 2020-05-15 13:30 | disposition home or self-care (01) ==
LOC: EDUNIT# 11:39 → ER 11:40
DX: J40 Bronchitis, not specified as acute or chronic (principal); K21.9 Gastro-esophageal reflux disease without esophagitis; F41.9 Anxiety disorder, unspecified; F31.9 Bipolar disorder, unspecified; F20.9 Schizophrenia, unspecified; Z20.828 Contact with and (suspected) exposure to other viral communicable diseases; Z91.040 Latex allergy status; Z88.8 Allergy status to other drugs, medicaments and biological substances; Z79.52 Long term (current) use of systemic steroids
CPT/HCPCS: 71045; 80053; 81000; 84703; 85025; 85379; 86141; U0002; 36415; 87635

== ENCOUNTER 2020-11-24 13:34 | Emergency (ER) | payer MEDICARE, MEDICAID ==
[~2020-11-24] VITALS: Ht 160 cm; Wt 78.0 kg
[~2020-11-24 13:34] MED LIST changes: +CEFU250T80 PO; +RT-ALBUINH IH
[2020-11-24 13:35] VITALS: BP 123/81
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
== END 2020-11-24 13:58 | disposition home or self-care (01) ==
LOC: EDUNIT# 13:34 → ER 13:35
DX: S00.401A Unspecified superficial injury of right ear, initial encounter (principal); J45.909 Unspecified asthma, uncomplicated; F31.9 Bipolar disorder, unspecified; F41.9 Anxiety disorder, unspecified; F20.9 Schizophrenia, unspecified; G43.909 Migraine, unspecified, not intractable, without status migrainosus; K21.9 Gastro-esophageal reflux disease without esophagitis; K59.09 Other constipation; F17.210 Nicotine dependence, cigarettes, uncomplicated; Z79.52 Long term (current) use of systemic steroids; Z79.899 Other long term (current) drug therapy; Z88.8 Allergy status to other drugs, medicaments and biological substances; Z91.040 Latex allergy status; W45.8XXA Other foreign body or object entering through skin, initial encounter
CPT/HCPCS: 99282

== ENCOUNTER → 2021-01-17 | Outpatient (CLI) | payer MEDICARE, MEDICAID ==
[~2021-01-17] MED LIST changes: +GADOBUTROL 7.5 MMOL/7.5 ML (GADAVIST) VIAL IV ONE
--- NOTE | 2021-01-17 17:24 | Diagnostic Imaging Report ---
PROCEDURE: MR imaging of the brain with and without contrast. TECHNIQUE: Multiplanar, multisequence MR imaging of the brain was performed with and without contrast. INDICATION: Migraine headache with status migrainosus. Ventricles and sulci are within normal limits for size. Suarez-white matter signal intensities are also unremarkable. There is no restricted diffusion to indicate an infarct. There is no abnormal mass effect or shift of midline structures. No hemorrhage is seen. There is no evidence of abnormal contrast enhancement. Visualized paranasal sinuses are clear as are mastoid air cells and middle ear cavities. IMPRESSION: Unremarkable MRI of the brain. Dictated by: Dictated on workstation # [id number]
== END ==
LOC: RAD 15:59
PROVIDERS: ATTEND Family Medicine
DX: G43.901 Migraine, unspecified, not intractable, with status migrainosus (principal)
CPT/HCPCS: 70553

== ENCOUNTER → 2021-04-19 | Outpatient (CLI) | payer MEDICARE, MEDICAID ==
[~2021-04-19] MED LIST changes: -GADOBUTROL 7.5 MMOL/7.5 ML (GADAVIST) VIAL IV ONE
== END ==
LOC: LABNPT 05:51
PROVIDERS: ATTEND Family Medicine
DX: R53.82 Chronic fatigue, unspecified (principal); Z20.822 Contact with and (suspected) exposure to COVID-19
CPT/HCPCS: 87635

== ENCOUNTER 2021-04-21 19:38 | Outpatient (CLI) | payer MEDICARE, MEDICAID | END 2021-04-22 07:15 | disposition home or self-care (01) | LOC: SLEEP 19:38 | PROVIDERS: ATTEND Family Medicine | DX: G47.10 Hypersomnia, unspecified (principal); G47.61 Periodic limb movement disorder; J42 Unspecified chronic bronchitis; K21.9 Gastro-esophageal reflux disease without esophagitis; K59.00 Constipation, unspecified; F31.9 Bipolar disorder, unspecified; Z72.0 Tobacco use; Z68.29 Body mass index [BMI] 29.0-29.9, adult | CPT/HCPCS: 95810 ==

== ENCOUNTER 2021-12-13 08:35 | Outpatient (RCR) | payer MEDICARE, MEDICAID | END 2021-12-15 | disposition home or self-care (01) | PROVIDERS: ATTEND Family Medicine Sports Medicine | DX: G56.22 Lesion of ulnar nerve, left upper limb (principal); J45.909 Unspecified asthma, uncomplicated ==

== ENCOUNTER 2022-01-10 08:37 | Outpatient (RCR) | payer MEDICARE, MEDICAID ==
[~2022-01-10 08:37] MED LIST changes: -ZONI100C29; +ZONI100C79
== END 2022-01-15 | disposition home or self-care (01) ==
PROVIDERS: ATTEND Family Medicine Sports Medicine
DX: G56.22 Lesion of ulnar nerve, left upper limb (principal); J45.909 Unspecified asthma, uncomplicated

== ENCOUNTER 2022-01-24 09:16 | Outpatient (RCR) | payer MEDICARE, MEDICAID | END 2022-01-28 15:39 | disposition home or self-care (01) | PROVIDERS: ATTEND Family Medicine Sports Medicine | DX: G56.22 Lesion of ulnar nerve, left upper limb (principal); J45.909 Unspecified asthma, uncomplicated ==

== ENCOUNTER 2022-02-12 08:30 | Outpatient (RCR) | payer MEDICARE, MEDICAID | END 2022-02-14 | disposition home or self-care (01) | PROVIDERS: ATTEND Pediatrics | DX: M54.50 Low back pain, unspecified (principal); J45.909 Unspecified asthma, uncomplicated | CPT/HCPCS: 97161; G0283 ==

== ENCOUNTER 2022-03-12 09:40 | Outpatient (RCR) | payer MEDICARE, MEDICAID | END 2022-03-17 | disposition home or self-care (01) | PROVIDERS: ATTEND Pediatrics | DX: M54.50 Low back pain, unspecified (principal); M53.3 Sacrococcygeal disorders, not elsewhere classified; J45.909 Unspecified asthma, uncomplicated ==

== ENCOUNTER 2022-03-22 09:47 | Outpatient (RCR) | payer MEDICARE, MEDICAID | END 2022-04-17 | disposition home or self-care (01) | PROVIDERS: ATTEND Pediatrics | DX: M54.50 Low back pain, unspecified (principal); M53.3 Sacrococcygeal disorders, not elsewhere classified; J45.909 Unspecified asthma, uncomplicated ==

== ENCOUNTER 2023-04-18 19:37 | Emergency (ER) | payer MEDICARE, MEDICAID ==
[~2023-04-18] VITALS: Ht 155 cm; Wt 89.8 kg
[~2023-04-18 19:37] MED LIST changes: +ALBU8.5H6 IH; +PARO-124 PO; -PARO-49 PO; -RT-ALBUINH IH
[2023-04-18 19:45] VITALS: BP 151/104
--- NOTE | 2023-04-18 19:57 | ED Back Pain ---
General Chief Complaint: Back Problems Stated Complaint: LOW BACK PAIN Nursing Triage Note: pt ambulatory to room. states she was walking this afternoon and felt a "pop" in her low back. pt states there was no injury. pt is A&Ox4, speech normal on arrival Source of Information: Patient Exam Limitations: No Limitations History of Present Illness Date Seen by Provider: Apr 18, 2023 Time Seen by Provider: 19:44 Initial Comments 42 yo F here for low back pain. Symptoms started about 1h prior to arrival while she was walking home. No known injury. No parasthesias. No LE weakness, tingling. No loss of bowel or bladder control. Does have h/o degenerative disc disease. All other systems reviewed and negative except documented per HPI. Voice recognition software was used to help create this chart Allergies and Home Medications Allergies Coded Allergies: escitalopram oxalate (Verified Allergy, Mild, 07/13/12) ketorolac (Verified Allergy, Unknown, 04/18/23) latex (Unverified Allergy, Unknown, ITCHING, 08/30/15) sumatriptan (Verified Allergy, Unknown, 03/12/06) topiramate (Verified Allergy, Unknown, 04/18/23) Uncoded Allergies: SURGICAL GLUE (Allergy, Unknown, DOESN'T ADHERE, 08/30/15) Patient Home Medication List Home Medication List Reviewed: Yes Albuterol (Proair Hfa) 8.5 Gm Hfa.aer.ad, 2 PUFF IH Q4H PRN, (Reported) Entered as Reported by: ERENDIRA CESAR on 01/31/11 1328 Albuterol Sulfate (Ventolin Hfa) 1 Puff Puff, 2 PUFF IH Q4H PRN for WHEEZING Prescribed by: JAMAAL BROWN on 05/15/20 1309 Buspirone HCl (Buspirone HCl) 30 Mg Tablet, 30 MG PO BID, (Reported) Entered as Reported by: STU TRAN on 08/24/15 1109 Butalb/Acetaminophen/Caffeine (Zjwbxn-Qslk-Pjpx 50-325-40 Tab) 1 Each Tablet, 1 EACH PO Q4HR PRN, (Reported) Entered as Reported by: ERENDIRA CESAR on 01/31/11 1328 Cefuroxime Axetil (Cefuroxime) 250 Mg Tablet, 250 MG PO BID Prescribed by: JAMAAL BROWN on 05/15/20 130 Clonazepam (Klonopin) 1 Mg Tablet, 1 MG PO TID PRN for ANXIETY, (Reported) Entered as Reported by: STU TRAN on 08/24/15 110 Famotidine (Famotidine) 20 Mg Tablet, (Reported) Entered as Reported by: ERIK JIMENEZ on 02/02/20 010 Fluticasone/Salmeterol (Advair 250-50 Diskus) 1 Each Blst.w.dev, (Reported) Entered as Reported by: ERIK JIMENEZ on 02/02/20103 Gabapentin (Gabapentin) 600 Mg Tablet, (Reported) Entered as Reported by: ERIK JIMENEZ on 02/02/20103 Mirabegron (Myrbetriq) 50 Mg Tab.er.24h, (Reported) Entered as Reported by: ERIK JIMENEZ on 02/02/20103 Montelukast Sodium (Singulair 10 Mg) 10 Mg Tablet, 10 MG PO DAILY, (Reported) Entered as Reported by: WALTER AGUILERA on 02/18/12 1229 Oxcarbazepine (Trileptal) 600 Mg Tablet, 600 MG PO BID, (Reported) Entered as Reported by: STU TRAN on 08/24/15 110 Oxcarbazepine (Oxcarbazepine) 600 Mg Tablet, (Reported) Entered as Reported by: ERIK JIMENEZ on 02/02/20103 Pantoprazole Sodium (Pantoprazole Sodium) 40 Mg Tablet.dr, (Reported) Entered as Reported by: ERIK JIMENEZ on 02/02/20103 Paroxetine HCl (Paxil) 20 Mg Tablet, 20 MG PO HS, (Reported) Entered as Reported by: STU TRAN on 08/24/15 110 Prednisone (Prednisone) 20 Mg Tab, 40 MG PO DAILY Prescribed by: JAMAAL BROWN on 05/15/20 1309 Ranitidine HCl (Acid Bill Of Materials Clerk (RANITIDINE)) 150 Mg Tablet, 150 MG PO DAILY PRN for HEARTBURN, (Reported) Entered as Reported by: STU TRAN on 08/24/15 110 Topiramate (Trokendi Xr) 200 Mg Cap.er.24h, (Reported) Entered as Reported by: ERIK JIMENEZ on 02/02/20103 Trazodone HCl (Trazodone HCl) 150 Mg Tablet, 150 MG PO HS, (Reported) Entered as Reported by: STU TRAN on 08/24/15 110 Ziprasidone HCl (Geodon) 60 Mg Capsule, 60 MG PO BID, (Reported) Entered as Reported by: STU TRAN on 08/24/15 110 Zolmitriptan (Zomig) 5 Mg [place], (Reported) Entered as Reported by: ERIK JIMENEZ on 02/02/20103 Zonisamide (Zonisamide) 100 Mg Capsule, (Reported) Entered as Reported by: ERIK JIMENEZ on 02/02/20103 Review of Systems Constitutional: see HPI Past Btmjsmo-K[place]ord-Jrjrft Hx Patient Social History Tobacco Use?: No Use of E-Cig and/or Vaping dev: No Substance use?: No Alcohol Use?: No Seasonal Allergies Seasonal Allergies: Yes Past Medical History Surgeries: Yes (ESS, SEVERAL BREAST BX, R SHOULDER X4, DXLS X3, BILAT CTR, BILAT KNEE) Abdominal, Adenoidectomy, Appendectomy, Breast, Section, Hysterectomy, Orthopedic, Tonsillectomy Respiratory: Yes Asthma Cardiac: No Neurological: Yes Headaches /Migraines Reproductive Disorders: No Female Reproductive Disorders: Endometriosis Sexually Transmitted Disease: No Gastrointestinal: Yes Gastroesophageal Reflux, Chronic Constipation Musculoskeletal: Yes Arthritis Endocrine: No Cancer: No Psychosocial: Yes Anxiety, Bipolar, Schizophrenia, Depression Integumentary: No Blood Disorders: No Family Medical History No Pertinent Family Hx Physical Exam Vital Signs Vital Signs - First Documented 04/18/23 19:45 Temp 37.2 Pulse 81 Resp 20 B/P (MAP) 151/104 (120) Pulse Ox 99 Capillary Refill : Height, Weight, BMI Height: 5'2.00" Weight: 200lbs. 0oz. 90.220033zl; 37.00 BMI Method:Stated General Appearance: No Apparent Distress, WD/WN HEENT: Normal ENT Inspection, Pharynx Normal Neck: Non Tender, Supple Cardiovascular: Regular Rate, Rhythm, No Murmur, Normal Peripheral Pulses Respiratory: Chest Non Tender, Lungs Clear, Normal Breath Sounds, No Accessory Muscle Use Gastrointestinal: Normal Bowel Sounds, No Organomegaly, Non Tender, Soft Back: Normal Inspection, No CVA Tenderness, No Vertebral Tenderness, Other (Tenderness palpation right paraspinal musculature in the lumbar region. No midline tenderness. Given changes.) Extremity: Normal Capillary Refill, Normal Inspection, Normal Range of Motion, Non Tender, No Calf Tenderness Neurologic/Psychiatric: Alert, Oriented x3, No Motor/Sensory Deficits, Normal Mood/Affect, ultrasonographer II-XII Norm as Tested Skin: Normal Color, Warm/Dry Progress/Results/Core Measures Results/Orders Vital Signs/I&O 04/18/23 19:45 Temp 37.2 Pulse 81 Resp 20 B/P (MAP) 151/104 (120) Pulse Ox 99 Blood Pressure Mean: 120 Departure Communication (Admissions) Patient is hemodynamically stable. No known injury. No red flag symptoms. No indication for imaging at this time. Conservative treatment with supportive care. She was offered Toradol and states she cannot take this. Offered muscle x-rays but states she takes Soma 3 times a day at home and declines. Impression Primary Impression: Low back pain Qualified Codes: M54.50 - Low back pain, unspecified Disposition: HOME, SELF-CARE Condition: Stable Departure-Patient Inst. Referrals: NOE JHAVERI DO (PCP/Family) Primary Care Physician Add. Discharge Instructions: Increase your fluids at home, rest. Use in the short-term, ice if it lasts longer than 3 to 4 days. Perform stretching exercises as discussed in the emergency department. Use ibuprofen and Tylenol as needed for pain. Continue your Soma. Return to the emergency department for any severe concerns. All discharge instructions reviewed with patient and/or family. Voiced understanding. RAN DOE DO Apr 18, 2023 19:57
== END 2023-04-18 20:11 | disposition home or self-care (01) ==
LOC: EDUNIT# 19:37 → ER 19:41
DX: M54.50 Low back pain, unspecified (principal); Z91.040 Latex allergy status; X50.1XXA Overexertion from prolonged static or awkward postures, initial encounter; Y93.01 Activity, walking, marching and hiking; Y92.009 Unspecified place in unspecified non-institutional (private) residence as the place of occurrence of the external cause
CPT/HCPCS: 99281